=== PATIENT | female | born 1995 | race Caucasian/White ===

== ENCOUNTER 2016-05-23 09:25 | Emergency (ER) | payer OTHER ==
--- NOTE | ~2016-05-23 | ER ---
PATIENT'S NAME: JOYA PENA [facility] AGE: 20 Y [address] ROOM: [place] [id number] LOCATION: [facility] ADMIT DATE: 05/23/2016 ER/Outpatient Report DISCHARGE DATE: 05/23/2016 FAMILY PHYSICIAN: PHYSICIAN, NO ATTENDING PHYSICIAN: Lisset Rose HISTORY OF PRESENT ILLNESS: The patient is a 20-year-old who came in with chief complaint of hives and swollen lips. She states that she was in [place] over the weekend and they went hiking on Sunday. She said instantly she started developing hives on her lower extremities all the way up to the level of her buttock bilaterally. She states she tried some Benadryl and this was not helping, so she was seen in urgent care on Sunday and was given a shot of steroid and another medication that patient is not sure the name of and then she was prescribed cimetidine, Zyrtec, and prednisone 60 mg for 3 days. She states later that day she was feeling much better. She said she did not have anymore symptoms. Yesterday, she was symptom-free and then she woke this morning and had hives on her lateral chest midline bilaterally and her neck and then she notes her legs were swollen. She also said it was difficult to move her neck and she just felt tender on the side of her chest. The patient denies any difficulties with breathing, any changes in her voice, any difficulty with swallowing, any difficulty with breathing, no shortness of breath. No headache or vision change. No numbness or tingling. The patient does admit to having diarrhea on Sunday and then again last night and this morning and then vomited this morning. She currently denies any nausea. MEDICATIONS: The patient other medications include: 1. Minocycline 100 mg daily for acne. 2. Sertraline 200 mg daily for anxiety. 3. She denies any other yybc-bsv-dxryipt supplements. SOCIAL HISTORY: Denies smoking history, illicit drug use, and said she drinks alcohol occasionally. The patient is not sexually active. ALLERGIES: THE PATIENT DENIES ANY ALLERGIES TO MEDICATIONS OR OTHER SUBSTANCES THAT SHE IS AWARE OF, BUT DOES ADMIT TO MILD SEASONAL ALLERGIES. REVIEW OF SYSTEMS: A complete and comprehensive review of systems was completed and was negative except as noted in the HPI above. PHYSICAL EXAMINATION: PATIENT'S NAME: JOYA PENA [facility] AGE: 20 Y [address] ROOM: [place] [address] LOCATION: [facility] ADMIT DATE: 05/23/2016 ER/Outpatient Report DISCHARGE DATE: 05/23/2016 FAMILY PHYSICIAN: PHYSICIAN, NO ATTENDING PHYSICIAN: Lisset Rose GENERAL: The patient was breathing unlabored, who was alert and oriented x4. She was able to move all extremities. SKIN: Warm, dry, and intact. She did not have blanchable raised rash consistent with hives, located to the upper neck and then bilateral chest midline laterally. She also had what appeared to healing areas where her hives were present before on her lower extremities bilaterally. HEENT: There is mild puffiness to her cheeks bilaterally and on both top and lower lip are swollen moderately. The remainder of the HEENT was within normal limites. CARDIOVASCULAR: Heart is regular rate and rhythm. No murmurs, rubs, or gallop. ABDOMEN: Normal in appearance. Soft and nontender. Positive bowel sounds in all 4 quadrants. EXTREMITIES: There is 1+ pedal edema bilaterally to the level of the knee; otherwise, unremarkable. LABORATORY AND DIAGNOSTIC DATA: There were no labs or imaging studies performed during today's visit. IMPRESSION: Allergic reaction to unknown source, likely exposure while in [place] and repeated exposure from clothing brought back from travel. EMERGENCY DEPARTMENT COURSE: The patient was brought back and was evaluated by both myself and Dr. Rose, and given 4 mg of IM Decadron and 50 mg of IM Benadryl. The puffiness to her cheeks and swelling of her lips improved as well as the appearance of the hives were also improved. Vitals signs remained stable. The patient was given a prescription for a longer taper of the prednisone. The patient was discharged in good condition and instructed to follow up with her primary care provider in 2 to 3 days. SHAHEED ORTIZ MD RESIDENT FOR DO MAGDALENA JORGENSEN/deandrel /[id number] ATTENDING ADDENDUM: I saw and evaluated the patient. I have discussed with the resident, agree with the resident's findings and plan and agree with the documented note above. LISSET ROSE DO d: 05/23/16 1540 t: 06/01/16 1939, OUTPATIENT REPORT
[2016-09-12] MEDS ORDERED: ZOLOFT100 MG PO (10:50)
[2016-09-12] MEDS ORDERED: MINOCIN100 MG PO (10:52)
== END 2016-05-23 10:38 | disposition disaster alternative care site (69) ==
LOC: GMED 09:25
DX: T78.40XA Allergy, unspecified, initial encounter (principal)
CPT/HCPCS: J1100; J1200